=== PATIENT | female | born 1940 | race Caucasian/White ===

== ENCOUNTER 2017-10-13 16:48 | Inpatient (IN) ==
[2017-10-13] MEDS ORDERED: FUROSEMIDE 40 MG/4 ML VIAL ONE (17:04)
[2017-10-13] MEDS ORDERED: NALOXONE 0.4 MG/ML VIAL ONE (17:04)
[2017-10-13] MEDS ORDERED: FUROSEMIDE 40 MG/4 ML VIAL IV STA ×2 (17:09→17:12)
[2017-10-13] MEDS ORDERED: DEXAMETHASONE 4 MG/1 ML VIAL ONE (17:09)
[2017-10-13] MEDS ORDERED: NALOXONE 0.4 MG/ML VIAL IV STA (17:13)
[2017-10-13] MEDS ORDERED: DEXAMETHASONE 4 MG/1 ML VIAL IV STA (17:14)
[2017-10-13] MEDS: PROPOFOL 1,000 MG/100 ML BOTTLE IV SCH ×2 (17:23→21:44)
[2017-10-13] MEDS ORDERED: ETOMIDATE 20 MG/10 ML VIAL IV ONE (17:30)
[2017-10-13] MEDS ORDERED: ROCURONIUM 100 MG/10 ML VIAL IV ONE (17:30)
[2017-10-13 17:33] LABS: Basophils % 0.6 % (0.0-0.8); Eosinophils # 0.2 10*3/uL (0.0-0.87); Eosinophils % 2.8 % (0.00-10.9); Hematocrit 37.1 VOL% (35.7-47.0); Hemoglobin 11.9 GM/DL (12.0-16.0); Immature Granulocytes Absolute 0.07 #; Lymphocytes # 1.7 10*3/uL (1.4-4.0); Lymphocytes % 25.2 % (21.3-54.2); Mean Corpuscular HGB Conc 32.1 GM/DL (32-36); Mean Corpuscular Hemoglobin 29 PG (27-34); Mean Corpuscular Volume 90.5 FL (87-102); Mean Platelet Volume 10.8 FL (9.6-12.0); Monocytes # 0.8 10*3/uL (0.11-0.8); Monocytes % 11.3 % (1.7-12.7); Neutrophils % 59.1 % (38.7-73.9); Platelet Count 282 T/CUMM (130-400); Red Cell Distribution Width 15.9 % (9.3-17.3); White Blood Count 6.8 T/CUMM (4-12)
[2017-10-13 17:41] LABS: PT Patient Result 10.5 SECS; Partial Thromboplastin Time 26.1 SECS (0-40)
[2017-10-13 18:02] LABS: Alanine Aminotransferase 9 U/L (13-56); Albumin 3.5 G/DL (3.4-5.0); Alkaline Phosphatase 61 U/L (45-117); Aspartate Amino Transferase 59 U/L (0-37); Blood Urea Nitrogen 33 MG/DL (7-18); CKMB % 0.6 %; Calcium 9.4 MG/DL (8.5-10.1); Glucose 97 MG/DL (74-106); Osmolality,Calculated 283.5 MOS/KG (273-304); Potassium 3.8 MMOL/L (3.5-5.1); Sodium 139 MMOL/L (136-145); Total Protein 7.6 G/DL (6.4-8.3); Troponin I Only < 0.015 NG/ML (0.00-0.045)
[2017-10-13 18:09] LABS: ABG Base Excess -2.6 MMOL/L (-2.5-2.5); ABG HCO3 22.3 MMOL/L (20-26); ABG Oxygen Saturation 99.9 % (95-100); ABG PCO2 44.2 MM HG (35-48); ABG PH 7.332 (7.35-7.45); ABG TCO2 20.9 MMOL/L (23-27)
[2017-10-13] MEDS ORDERED: PROPOFOL 1,000 MG/100 ML BOTTLE IV ONE (18:13)
[2017-10-13] MEDS ORDERED: ONDANSETRON 4 MG/2 ML VIAL IV PRN (18:48)
[2017-10-13] MEDS ORDERED: ALBUTEROL 2.5 MG/3 ML NEB RESP TX PRN (18:48)
[2017-10-13] MEDS ORDERED: SODIUM CHLORIDE 0.9% 1,000 ML IV SCH (19:00)
[2017-10-13] MEDS ORDERED: PANTOPRAZOLE 40 MG VIAL IV SCH (19:00)
[2017-10-13] MEDS: ALBUTEROL/IPRATROPIUM 3 ML NEB RESP TX SCH (19:38)
[2017-10-13] MEDS ORDERED: ALBUTEROL 0.63 MG/3 ML NEB RESP TX PRN (19:59)
[2017-10-13] MEDS ORDERED: LEVOFLOXACIN INJ 500 MG in PREMIX 1 EACH IV ONE (20:00)
[2017-10-13 20:24] LABS: Apearance,Urine CLEAR (Clear); Bacteria,Urine Occasional /HPF (Few); Bilirubin,Urine Negative (Negative); Blood, Urine Negative (Negative); Glucose,Urine (UA) Negative (Negative); Hyaline Casts,Urine 4 /LPF (0-3); Ketones,Urine 5 mg/dL (Negative); Mucus,Urine Occasional /LPF (Occasional); Nitrite,Urine Negative (Negative); Protein,Urine 30 MG/DL; RBC,Urine 1 /HPF (0-4); Squamous Epithelial Cell,Urine Occasional /HPF (0-10); Urine Color Amber (Yellow); Urine Specific Gravity 1.019 (1.001-1.035); WBC,Urine 1 /HPF (0-6)
[2017-10-13] MEDS: ENOXAPARIN 30 MG/0.3 ML SYRINGE SUBCUT SCH (20:29)
[2017-10-13 20:30] LABS: Barbiturates Screen,Urine Negative (Negative); Benzodiazepines Screen,Urine Negative (Negative); Cannabinoid Screen,Urine Negative (Negative); Opiate Screen,Urine Positive (Negative); Phencyclidine Screen,Urine Negative (Negative)
[2017-10-13 21:20] LABS: ABG Base Excess -3.8 MMOL/L (-2.5-2.5); ABG HCO3 21.2 MMOL/L (20-26); ABG PCO2 37.8 MM HG (35-48); ABG PH 7.357 (7.35-7.45); ABG TCO2 19.1 MMOL/L (23-27)
[2017-10-14] MEDS: ALBUTEROL/IPRATROPIUM 3 ML NEB RESP TX SCH ×4 (01:03→19:15)
[2017-10-14] MEDS: PROPOFOL 1,000 MG/100 ML BOTTLE IV SCH ×5 (01:55→23:36)
[2017-10-14 04:21] LABS: ABG Base Excess -4.9 MMOL/L (-2.5-2.5); ABG HCO3 20.4 MMOL/L (20-26); ABG Oxygen Saturation 99.4 % (95-100); ABG PCO2 32.3 MM HG (35-48); ABG PH 7.384 (7.35-7.45); ABG TCO2 17.3 MMOL/L (23-27); Allen Test Positive; Pt O2 Delivery Device Ventilator
[2017-10-14 06:04] LABS: Basophils % 0.2 % (0.0-0.8); Hemoglobin 10.5 GM/DL (12.0-16.0); Immature Granulocytes % 1.1 %; Immature Granulocytes Absolute 0.05 #; Lymphocytes # 0.7 10*3/uL (1.4-4.0); Lymphocytes % 14.9 % (21.3-54.2); Mean Corpuscular HGB Conc 32.8 GM/DL (32-36); Mean Corpuscular Hemoglobin 29 PG (27-34); Mean Corpuscular Volume 87.4 FL (87-102); Mean Platelet Volume 10.7 FL (9.6-12.0); Monocytes # 0.1 10*3/uL (0.11-0.8); Neutrophils # 3.7 10*3/uL (1.4-7.4); Neutrophils % 81.8 % (38.7-73.9); Platelet Count 229 T/CUMM (130-400); Red Blood Count 3.66 MC/CUMM (3.8-5.5); Red Cell Distribution Width 15.9 % (9.3-17.3); White Blood Count 4.6 T/CUMM (4-12)
[2017-10-14 06:34] LABS: Bilirubin,Total 0.6 MG/DL (0.2-1.0); Calcium 8.6 MG/DL (8.5-10.1); Osmolality,Calculated 290.4 MOS/KG (273-304); Total Protein 6.7 G/DL (6.4-8.3)
[2017-10-14] MEDS ORDERED: PANTOPRAZOLE 40 MG TABLET PO SCH (09:00)
[2017-10-14] MEDS: CARBIDOPA/LEVODOPA 25-100 MG TABLET PO SCH ×2 (09:13→21:06)
[2017-10-14] MEDS: GABAPENTIN 300 MG CAPSULE PO SCH ×3 (09:14→21:06)
[2017-10-14] MEDS: predniSONE 1 MG TABLET PO SCH (09:14)
[2017-10-14] MEDS: POTASSIUM CHLORIDE 20 MEQ TABLET PO SCH (09:14)
[2017-10-14] MEDS: CARVEDILOL 3.125 MG TABLET PO SCH ×2 (09:14→21:06)
[2017-10-14] MEDS: DULoxetine 30 MG CAPSULE PO SCH (09:15)
[2017-10-14] MEDS: PANTOPRAZOLE 40 MG VIAL IV SCH (09:15)
[2017-10-14] MEDS ORDERED: GLUCAGON 1 MG VIAL IM PRN (10:49)
[2017-10-14] MEDS ORDERED: DEXTROSE 50% 25 GM/50 ML VIAL IV PRN (10:49)
[2017-10-14] MEDS: CEFTAROLINE 400 MG in SODIUM CHLORIDE 0.9% 100 ML IV SCH ×2 (11:32→21:59)
[2017-10-14] MEDS: INSULIN REGULAR 100 UNIT/ML SUBCUT SCH ×3 (13:55→23:44)
[2017-10-14] MEDS: VERAPAMIL 120 MG TABLET PO SCH ×2 (14:13→21:06)
[2017-10-14] MEDS: MORPHINE 2 MG/1 ML SYRINGE IV PRN (17:53)
[2017-10-14] MEDS: LEVOFLOXACIN INJ 250 MG in PREMIX 1 EACH IV SCH (20:58)
[2017-10-14] MEDS: ENOXAPARIN 30 MG/0.3 ML SYRINGE SUBCUT SCH (21:07)
[2017-10-15] MEDS: ALBUTEROL/IPRATROPIUM 3 ML NEB RESP TX SCH ×4 (01:22→20:09)
[2017-10-15] MEDS: PROPOFOL 1,000 MG/100 ML BOTTLE IV SCH ×4 (02:30→22:38)
[2017-10-15 04:15] LABS: ABG Base Excess 2.3 MMOL/L (-2.5-2.5); ABG HCO3 26.5 MMOL/L (20-26); ABG Oxygen Saturation 99.7 % (95-100); ABG PCO2 30.8 MM HG (35-48); ABG PH 7.504 (7.35-7.45); ABG TCO2 19.8 MMOL/L (23-27); Allen Test Positive; Pt O2 Delivery Device Ventilator
[2017-10-15 05:53] LABS: Prealbumin 22.6 MG/DL (20-40)
[2017-10-15] MEDS: INSULIN REGULAR 100 UNIT/ML SUBCUT SCH ×3 (05:59→18:31)
[2017-10-15] MEDS: PANTOPRAZOLE 40 MG VIAL IV SCH (09:14)
[2017-10-15] MEDS: VERAPAMIL 120 MG TABLET PO SCH ×3 (09:15→21:27)
[2017-10-15] MEDS: CARVEDILOL 3.125 MG TABLET PO SCH ×2 (09:15→21:27)
[2017-10-15] MEDS: GABAPENTIN 300 MG CAPSULE PO SCH ×3 (09:15→21:27)
[2017-10-15] MEDS: CARBIDOPA/LEVODOPA 25-100 MG TABLET PO SCH ×2 (09:15→21:27)
[2017-10-15] MEDS: predniSONE 1 MG TABLET PO SCH (09:15)
[2017-10-15] MEDS: POTASSIUM CHLORIDE 20 MEQ TABLET PO SCH (09:15)
[2017-10-15] MEDS: DULoxetine 30 MG CAPSULE PO SCH (09:16)
[2017-10-15] MEDS: CEFTAROLINE 400 MG in SODIUM CHLORIDE 0.9% 100 ML IV SCH ×2 (09:23→21:35)
[2017-10-15] MEDS: LEVOFLOXACIN INJ 250 MG in PREMIX 1 EACH IV SCH (20:14)
[2017-10-15] MEDS: ENOXAPARIN 30 MG/0.3 ML SYRINGE SUBCUT SCH (21:28)
[2017-10-16] MEDS: INSULIN REGULAR 100 UNIT/ML SUBCUT SCH ×4 (00:20→18:33)
[2017-10-16] MEDS: ALBUTEROL/IPRATROPIUM 3 ML NEB RESP TX SCH ×4 (01:14→19:08)
[2017-10-16] MEDS: PROPOFOL 1,000 MG/100 ML BOTTLE IV SCH ×4 (01:41→22:35)
[2017-10-16 04:13] LABS: ABG Base Excess 1.9 MMOL/L (-2.5-2.5); ABG HCO3 26.1 MMOL/L (20-26); ABG Oxygen Saturation 99.9 % (95-100); ABG PCO2 30.7 MM HG (35-48); ABG PH 7.509 (7.35-7.45); ABG TCO2 22.2 MMOL/L (23-27); Allen Test Positive; Pt O2 Delivery Device Ventilator
[2017-10-16 05:25] LABS: Basophils % 0.1 % (0.0-0.8); Eosinophils % 0.4 % (0.00-10.9); Hemoglobin 10.2 GM/DL (12.0-16.0); Immature Granulocytes % 0.6 %; Immature Granulocytes Absolute 0.04 #; Lymphocytes # 1.1 10*3/uL (1.4-4.0); Lymphocytes % 16.7 % (21.3-54.2); Mean Corpuscular HGB Conc 32.9 GM/DL (32-36); Mean Corpuscular Hemoglobin 29 PG (27-34); Mean Corpuscular Volume 88.8 FL (87-102); Mean Platelet Volume 10.6 FL (9.6-12.0); Monocytes # 0.6 10*3/uL (0.11-0.8); Monocytes % 8.2 % (1.7-12.7); Platelet Count 182 T/CUMM (130-400); Red Blood Count 3.49 MC/CUMM (3.8-5.5); Red Cell Distribution Width 15.9 % (9.3-17.3); White Blood Count 6.7 T/CUMM (4-12)
[2017-10-16 05:49] LABS: Calcium 8.2 MG/DL (8.5-10.1); Osmolality,Calculated 290.8 MOS/KG (273-304); Potassium 3.6 MMOL/L (3.5-5.1)
[2017-10-16] MEDS: predniSONE 1 MG TABLET PO SCH (09:22)
[2017-10-16] MEDS: POTASSIUM CHLORIDE 20 MEQ TABLET PO SCH (09:22)
[2017-10-16] MEDS: VERAPAMIL 120 MG TABLET PO SCH ×4 (09:23→20:37)
[2017-10-16] MEDS: GABAPENTIN 300 MG CAPSULE PO SCH ×3 (09:23→20:39)
[2017-10-16] MEDS: PANTOPRAZOLE 40 MG VIAL IV SCH (09:23)
[2017-10-16] MEDS: CARVEDILOL 3.125 MG TABLET PO SCH ×2 (09:23→20:38)
[2017-10-16] MEDS: CARBIDOPA/LEVODOPA 25-100 MG TABLET PO SCH ×2 (09:23→20:37)
[2017-10-16] MEDS: CEFTAROLINE 400 MG in SODIUM CHLORIDE 0.9% 100 ML IV SCH ×2 (09:26→21:31)
[2017-10-16] MEDS: DULoxetine 30 MG CAPSULE PO SCH (09:26)
[2017-10-16] MEDS ORDERED: POTASSIUM CHLORIDE 20 MEQ/15 ML UDCUP PER TUBE PRN (11:37)
[2017-10-16] MEDS: hydrALAZINE 25 MG TABLET PO SCH ×2 (12:43→20:38)
[2017-10-16] MEDS: LEVOFLOXACIN INJ 250 MG in PREMIX 1 EACH IV SCH (20:27)
[2017-10-16] MEDS: ENOXAPARIN 30 MG/0.3 ML SYRINGE SUBCUT SCH (20:38)
[2017-10-17] MEDS: ALBUTEROL/IPRATROPIUM 3 ML NEB RESP TX SCH ×4 (00:59→19:07)
[2017-10-17] MEDS: INSULIN REGULAR 100 UNIT/ML SUBCUT SCH ×4 (02:08→18:44)
[2017-10-17 04:38] LABS: ABG Base Excess -0.8 MMOL/L (-2.5-2.5); ABG HCO3 21.3 MMOL/L (20-26); ABG PCO2 27.3 MM HG (35-48); ABG PO2 181.9 MM HG (80-95); ABG TCO2 22.1 MMOL/L (23-27); Allen Test Positive; Pt O2 Delivery Device Ventilator
[2017-10-17 05:52] LABS: Basophils % 0.4 % (0.0-0.8); Eosinophils # 0.1 10*3/uL (0.0-0.87); Eosinophils % 1.7 % (0.00-10.9); Hematocrit 33.4 VOL% (35.7-47.0); Hemoglobin 10.5 GM/DL (12.0-16.0); Immature Granulocytes % 0.9 %; Immature Granulocytes Absolute 0.06 #; Lymphocytes # 1.1 10*3/uL (1.4-4.0); Mean Corpuscular HGB Conc 31.4 GM/DL (32-36); Mean Corpuscular Hemoglobin 29 PG (27-34); Mean Platelet Volume 11.2 FL (9.6-12.0); Monocytes # 0.6 10*3/uL (0.11-0.8); Monocytes % 8.7 % (1.7-12.7); Neutrophils # 5.1 10*3/uL (1.4-7.4); Neutrophils % 72.3 % (38.7-73.9); Platelet Count 197 T/CUMM (130-400); Red Blood Count 3.67 MC/CUMM (3.8-5.5); Red Cell Distribution Width 15.6 % (9.3-17.3); White Blood Count 7.1 T/CUMM (4-12)
[2017-10-17 06:23] LABS: Prealbumin 19.5 MG/DL (20-40)
[2017-10-17 06:48] LABS: Calcium 8.3 MG/DL (8.5-10.1); Potassium 3.9 MMOL/L (3.5-5.1)
[2017-10-17] MEDS: PROPOFOL 1,000 MG/100 ML BOTTLE IV SCH ×3 (07:11→22:35)
[2017-10-17] MEDS: DILTIAZEM INJ 100 MG in SODIUM CHLORIDE 0.9% 100 ML IV SCH ×2 (07:45→22:36)
[2017-10-17] MEDS ORDERED: ENOXAPARIN 40 MG/0.4 ML SYRINGE SUBCUT ONE (09:56)
[2017-10-17] MEDS: ASPIRIN CHEW 81 MG TABLET PO SCH (10:00)
[2017-10-17] MEDS: PANTOPRAZOLE 40 MG VIAL IV SCH (10:02)
[2017-10-17] MEDS: DULoxetine 30 MG CAPSULE PO SCH (10:03)
[2017-10-17] MEDS: CARBIDOPA/LEVODOPA 25-100 MG TABLET PO SCH ×2 (10:03→22:15)
[2017-10-17] MEDS: predniSONE 1 MG TABLET PO SCH (10:03)
[2017-10-17] MEDS: CARVEDILOL 3.125 MG TABLET PO SCH (10:03)
[2017-10-17] MEDS: hydrALAZINE 25 MG TABLET PO SCH ×4 (10:03→22:16)
[2017-10-17] MEDS: GABAPENTIN 300 MG CAPSULE PO SCH ×3 (10:04→22:16)
[2017-10-17] MEDS: POTASSIUM CHLORIDE 20 MEQ TABLET PO SCH (10:04)
[2017-10-17] MEDS: CEFTAROLINE 600 MG in SODIUM CHLORIDE 0.9% 100 ML IV SCH ×2 (10:34→23:22)
[2017-10-17 10:57] LABS: Risk Ratio 6.92; Thyroid Stimulating Hormone 3.18 uIU/ml (0.358-3.74); VLDL CHOLESTEROL 42.8 MG/DL
[2017-10-17] MEDS ORDERED: ENOXAPARIN 40 MG/0.4 ML SYRINGE SUBCUT SCH (21:00)
[2017-10-17] MEDS: LEVOFLOXACIN INJ 500 MG in PREMIX 1 EACH IV SCH (22:04)
[2017-10-17] MEDS: ENOXAPARIN 80 MG/0.8 ML SYRINGE SUBCUT SCH (22:15)
[2017-10-17] MEDS: CARVEDILOL 6.25 MG TABLET PO SCH (22:15)
[2017-10-18] MEDS: ALBUTEROL/IPRATROPIUM 3 ML NEB RESP TX SCH ×4 (00:08→20:26)
[2017-10-18] MEDS: INSULIN REGULAR 100 UNIT/ML SUBCUT SCH ×4 (00:47→19:11)
[2017-10-18] MEDS: PROPOFOL 1,000 MG/100 ML BOTTLE IV SCH ×3 (02:32→15:54)
[2017-10-18 03:42] LABS: ABG Base Excess -3.3 MMOL/L (-2.5-2.5); ABG HCO3 21.6 MMOL/L (20-26); ABG Oxygen Saturation 93.6 % (95-100); ABG PCO2 31.9 MM HG (35-48); ABG PH 7.416 (7.35-7.45); ABG PO2 68.9 MM HG (80-95); ABG TCO2 18.6 MMOL/L (23-27)
[2017-10-18 05:34] LABS: Basophils % 0.4 % (0.0-0.8); Eosinophils # 0.2 10*3/uL (0.0-0.87); Eosinophils % 2.7 % (0.00-10.9); Hematocrit 30.9 VOL% (35.7-47.0); Hemoglobin 9.9 GM/DL (12.0-16.0); Immature Granulocytes % 2.3 %; Immature Granulocytes Absolute 0.16 #; Lymphocytes # 0.9 10*3/uL (1.4-4.0); Lymphocytes % 12.4 % (21.3-54.2); Mean Corpuscular Hemoglobin 29 PG (27-34); Mean Corpuscular Volume 89.3 FL (87-102); Mean Platelet Volume 11.6 FL (9.6-12.0); Monocytes # 0.7 10*3/uL (0.11-0.8); Monocytes % 9.7 % (1.7-12.7); Neutrophils % 72.5 % (38.7-73.9); Platelet Count 190 T/CUMM (130-400); Red Blood Count 3.46 MC/CUMM (3.8-5.5); Red Cell Distribution Width 15.8 % (9.3-17.3); White Blood Count 6.9 T/CUMM (4-12)
[2017-10-18 05:59] LABS: Band Neutrophils 1 % (0-10); Burr Cells Slight; Eosinophils 2 % (0-10); Giant Platelets Few; Hypochromasia 1+; Lymphocytes 9 % (20-55); Microcytosis Slight; Ovalocytes Slight; Platelet Estimate Adequate; Segmented Neutrophils 75 % (50-85); Total Cells Counted 100
[2017-10-18 06:05] LABS: Calcium 8.4 MG/DL (8.5-10.1); Osmolality,Calculated 288.5 MOS/KG (273-304); Potassium 4.3 MMOL/L (3.5-5.1)
[2017-10-18 06:09] LABS: Calcium 8.4 MG/DL (8.5-10.1); Osmolality,Calculated 289.4 MOS/KG (273-304); Potassium 4.3 MMOL/L (3.5-5.1)
[2017-10-18] MEDS: CARVEDILOL 6.25 MG TABLET PO SCH ×2 (09:01→20:34)
[2017-10-18] MEDS: POTASSIUM CHLORIDE 20 MEQ TABLET PO SCH (09:01)
[2017-10-18] MEDS: GABAPENTIN 300 MG CAPSULE PO SCH ×3 (09:01→20:34)
[2017-10-18] MEDS: DULoxetine 30 MG CAPSULE PO SCH (09:02)
[2017-10-18] MEDS: CARBIDOPA/LEVODOPA 25-100 MG TABLET PO SCH ×2 (09:03→20:33)
[2017-10-18] MEDS: predniSONE 1 MG TABLET PO SCH (09:03)
[2017-10-18] MEDS: ASPIRIN CHEW 81 MG TABLET PO SCH (09:03)
[2017-10-18] MEDS: hydrALAZINE 25 MG TABLET PO SCH ×4 (09:03→20:34)
[2017-10-18] MEDS: SOTALOL 80 MG TABLET NG SCH ×2 (09:03→20:33)
[2017-10-18] MEDS: methylPREDNISolone SOD SUC 40 MG/1 ML VIAL IV SCH ×2 (09:04→16:42)
[2017-10-18] MEDS: PANTOPRAZOLE 40 MG VIAL IV SCH (09:08)
[2017-10-18] MEDS: ENOXAPARIN 80 MG/0.8 ML SYRINGE SUBCUT SCH ×2 (09:15→20:33)
[2017-10-18] MEDS: CEFTAROLINE 600 MG in SODIUM CHLORIDE 0.9% 100 ML IV SCH ×2 (09:29→20:35)
[2017-10-18] MEDS: DILTIAZEM INJ 100 MG in SODIUM CHLORIDE 0.9% 100 ML IV SCH (19:32)
[2017-10-18] MEDS: MORPHINE 2 MG/1 ML SYRINGE IV PRN (20:34)
[2017-10-18] MEDS: LEVOFLOXACIN INJ 500 MG in PREMIX 1 EACH IV SCH (20:35)
[2017-10-19] MEDS: INSULIN REGULAR 100 UNIT/ML SUBCUT SCH ×5 (00:15→23:14)
[2017-10-19] MEDS: methylPREDNISolone SOD SUC 40 MG/1 ML VIAL IV SCH ×4 (00:15→23:15)
[2017-10-19] MEDS: MORPHINE 2 MG/1 ML SYRINGE IV PRN ×6 (00:22→23:09)
[2017-10-19] MEDS: PROPOFOL 1,000 MG/100 ML BOTTLE IV SCH ×4 (00:45→23:15)
[2017-10-19] MEDS: ALBUTEROL/IPRATROPIUM 3 ML NEB RESP TX SCH ×4 (01:05→19:34)
[2017-10-19 03:42] LABS: ABG Base Excess -4.4 MMOL/L (-2.5-2.5); ABG HCO3 20.8 MMOL/L (20-26); ABG Oxygen Saturation 99.2 % (95-100); ABG PCO2 32.8 MM HG (35-48); ABG PH 7.388 (7.35-7.45); ABG TCO2 17.9 MMOL/L (23-27)
[2017-10-19 05:15] LABS: Basophils % 0.2 % (0.0-0.8); Hematocrit 31.1 VOL% (35.7-47.0); Hemoglobin 9.9 GM/DL (12.0-16.0); Immature Granulocytes % 4.4 %; Immature Granulocytes Absolute 0.27 #; Lymphocytes # 0.6 10*3/uL (1.4-4.0); Lymphocytes % 9.6 % (21.3-54.2); Mean Corpuscular HGB Conc 31.8 GM/DL (32-36); Mean Corpuscular Hemoglobin 28 PG (27-34); Mean Corpuscular Volume 89.1 FL (87-102); Mean Platelet Volume 11.6 FL (9.6-12.0); Monocytes # 0.2 10*3/uL (0.11-0.8); Monocytes % 3.3 % (1.7-12.7); Neutrophils # 5.1 10*3/uL (1.4-7.4); Neutrophils % 82.5 % (38.7-73.9); Platelet Count 194 T/CUMM (130-400); Red Blood Count 3.49 MC/CUMM (3.8-5.5); Red Cell Distribution Width 15.2 % (9.3-17.3); White Blood Count 6.1 T/CUMM (4-12)
[2017-10-19 05:33] LABS: Calcium 8.6 MG/DL (8.5-10.1); Osmolality,Calculated 301.7 MOS/KG (273-304); Potassium 4.9 MMOL/L (3.5-5.1)
[2017-10-19] MEDS: GABAPENTIN 300 MG CAPSULE PO SCH ×3 (08:45→20:34)
[2017-10-19] MEDS: POTASSIUM CHLORIDE 20 MEQ TABLET PO SCH (08:45)
[2017-10-19] MEDS: DULoxetine 30 MG CAPSULE PO SCH (08:45)
[2017-10-19] MEDS: predniSONE 1 MG TABLET PO SCH (08:45)
[2017-10-19] MEDS: SOTALOL 80 MG TABLET NG SCH ×2 (08:45→20:34)
[2017-10-19] MEDS: CARBIDOPA/LEVODOPA 25-100 MG TABLET PO SCH ×2 (08:45→20:34)
[2017-10-19] MEDS: CARVEDILOL 6.25 MG TABLET PO SCH (08:45)
[2017-10-19] MEDS: hydrALAZINE 25 MG TABLET PO SCH ×3 (08:45→20:38)
[2017-10-19] MEDS: ENOXAPARIN 80 MG/0.8 ML SYRINGE SUBCUT SCH ×2 (08:45→20:33)
[2017-10-19] MEDS: ASPIRIN CHEW 81 MG TABLET PO SCH (08:45)
[2017-10-19] MEDS: PANTOPRAZOLE 40 MG VIAL IV SCH (09:23)
[2017-10-19] MEDS: CEFTAROLINE 600 MG in SODIUM CHLORIDE 0.9% 100 ML IV SCH ×2 (09:24→20:33)
[2017-10-19] MEDS ORDERED: CARVEDILOL 6.25 MG TABLET PO ONE (09:57)
[2017-10-19] MEDS ORDERED: INSULIN NPH 100 UNIT/ML SUBCUT ONE (14:41)
[2017-10-19] MEDS: LEVOFLOXACIN INJ 500 MG in PREMIX 1 EACH IV SCH (19:19)
[2017-10-19] MEDS: CARVEDILOL 12.5 MG TABLET PO SCH (20:34)
[2017-10-19] MEDS ORDERED: INSULIN GLARGINE 100 UNIT/ML SUBCUT SCH (21:00)
[2017-10-19] MEDS ORDERED: ALBUTEROL NEB SOLN 5 MG/ML 20 ML/BOTTLE CONT NEB ONE (23:48)
[2017-10-19] MEDS ORDERED: MAGNESIUM SULF RIDER 2 GM in PREMIX 1 EACH IV ONE (23:50)
[2017-10-20] MEDS: ALBUTEROL/IPRATROPIUM 3 ML NEB RESP TX SCH ×4 (00:43→19:42)
[2017-10-20] MEDS: MORPHINE 2 MG/1 ML SYRINGE IV PRN ×4 (03:30→20:09)
[2017-10-20] MEDS: PROPOFOL 1,000 MG/100 ML BOTTLE IV SCH ×4 (03:30→22:15)
[2017-10-20 03:58] LABS: Basophils % 0.1 % (0.0-0.8); Hematocrit 34.1 VOL% (35.7-47.0); Hemoglobin 10.4 GM/DL (12.0-16.0); Immature Granulocytes % 4.1 %; Immature Granulocytes Absolute 0.41 #; Lymphocytes # 0.9 10*3/uL (1.4-4.0); Lymphocytes % 9.1 % (21.3-54.2); Mean Corpuscular HGB Conc 30.5 GM/DL (32-36); Mean Corpuscular Hemoglobin 29 PG (27-34); Mean Platelet Volume 11.9 FL (9.6-12.0); Monocytes # 0.4 10*3/uL (0.11-0.8); Monocytes % 3.8 % (1.7-12.7); Neutrophils # 8.2 10*3/uL (1.4-7.4); Neutrophils % 82.9 % (38.7-73.9); Platelet Count 248 T/CUMM (130-400); Red Blood Count 3.59 MC/CUMM (3.8-5.5); Red Cell Distribution Width 15.2 % (9.3-17.3); White Blood Count 9.9 T/CUMM (4-12)
[2017-10-20 04:30] LABS: Calcium 8.4 MG/DL (8.5-10.1); Osmolality,Calculated 304.4 MOS/KG (273-304); Potassium 5.4 MMOL/L (3.5-5.1)
[2017-10-20 04:53] LABS: ABG Base Excess -7.9 MMOL/L (-2.5-2.5); ABG HCO3 18.1 MMOL/L (20-26); ABG Oxygen Saturation 99.1 % (95-100); ABG PCO2 51.6 MM HG (35-48); ABG TCO2 18.9 MMOL/L (23-27); Pt O2 Delivery Device Ventilator
[2017-10-20 04:57] LABS: ABG PH 7.205 (7.35-7.45)
[2017-10-20] MEDS: INSULIN REGULAR 100 UNIT/ML SUBCUT SCH ×3 (06:14→18:06)
[2017-10-20 06:59] LABS: ABG Base Excess -6.8 MMOL/L (-2.5-2.5); ABG HCO3 20.4 MMOL/L (20-26); ABG Oxygen Saturation 98.8 % (95-100); ABG PCO2 47.9 MM HG (35-48); ABG PH 7.247 (7.35-7.45); ABG PO2 178.3 MM HG (80-95); ABG TCO2 21.9 MMOL/L (23-27)
[2017-10-20 07:29] LABS: Prealbumin 20.7 MG/DL (20-40)
[2017-10-20] MEDS: ENOXAPARIN 80 MG/0.8 ML SYRINGE SUBCUT SCH ×2 (08:27→20:08)
[2017-10-20] MEDS: CEFTAROLINE 600 MG in SODIUM CHLORIDE 0.9% 100 ML IV SCH ×2 (08:27→20:16)
[2017-10-20] MEDS: PANTOPRAZOLE 40 MG VIAL IV SCH (08:28)
[2017-10-20] MEDS: methylPREDNISolone SOD SUC 40 MG/1 ML VIAL IV SCH ×2 (08:28→15:24)
[2017-10-20] MEDS: hydrALAZINE 25 MG TABLET PO SCH ×2 (08:29→20:10)
[2017-10-20] MEDS: GABAPENTIN 300 MG CAPSULE PO SCH ×3 (08:29→20:16)
[2017-10-20] MEDS: SOTALOL 80 MG TABLET NG SCH ×2 (08:29→20:09)
[2017-10-20] MEDS: CARVEDILOL 12.5 MG TABLET PO SCH ×2 (08:30→20:11)
[2017-10-20] MEDS: POTASSIUM CHLORIDE 20 MEQ TABLET PO SCH (08:30)
[2017-10-20] MEDS: ASPIRIN CHEW 81 MG TABLET PO SCH (08:30)
[2017-10-20] MEDS: CARBIDOPA/LEVODOPA 25-100 MG TABLET PO SCH ×2 (08:30→20:10)
[2017-10-20] MEDS: DULoxetine 30 MG CAPSULE PO SCH ×2 (08:30→08:45)
[2017-10-20] MEDS: predniSONE 1 MG TABLET PO SCH (11:54)
[2017-10-20] MEDS ORDERED: INSULIN GLARGINE 100 UNIT/ML SUBCUT SCH (15:56)
[2017-10-20] MEDS: LEVOFLOXACIN INJ 500 MG in PREMIX 1 EACH IV SCH (19:48)
[2017-10-21] MEDS: methylPREDNISolone SOD SUC 40 MG/1 ML VIAL IV SCH ×4 (00:24→23:59)
[2017-10-21] MEDS: INSULIN REGULAR 100 UNIT/ML SUBCUT SCH ×7 (00:24→23:59)
[2017-10-21] MEDS: ALBUTEROL/IPRATROPIUM 3 ML NEB RESP TX SCH ×4 (01:21→19:12)
[2017-10-21] MEDS: MORPHINE 2 MG/1 ML SYRINGE IV PRN ×3 (02:30→23:20)
[2017-10-21] MEDS: PROPOFOL 1,000 MG/100 ML BOTTLE IV SCH ×4 (02:30→22:15)
[2017-10-21 04:19] LABS: Allen Test Positive; Pt O2 Delivery Device Ventilator
[2017-10-21 04:20] LABS: ABG Base Excess -5.7 MMOL/L (-2.5-2.5); ABG HCO3 19.8 MMOL/L (20-26); ABG Oxygen Saturation 99.2 % (95-100); ABG PCO2 41.1 MM HG (35-48); ABG PH 7.304 (7.35-7.45); ABG TCO2 18.7 MMOL/L (23-27)
[2017-10-21 05:17] LABS: Basophils % 0.1 % (0.0-0.8); Hematocrit 31.8 VOL% (35.7-47.0); Hemoglobin 9.6 GM/DL (12.0-16.0); Immature Granulocytes % 5.1 %; Immature Granulocytes Absolute 0.35 #; Lymphocytes # 0.5 10*3/uL (1.4-4.0); Lymphocytes % 6.6 % (21.3-54.2); Mean Corpuscular HGB Conc 30.2 GM/DL (32-36); Mean Corpuscular Hemoglobin 29 PG (27-34); Mean Corpuscular Volume 94.6 FL (87-102); Mean Platelet Volume 11.5 FL (9.6-12.0); Monocytes # 0.7 10*3/uL (0.11-0.8); Monocytes % 9.6 % (1.7-12.7); Neutrophils # 5.4 10*3/uL (1.4-7.4); Neutrophils % 78.6 % (38.7-73.9); Platelet Count 218 T/CUMM (130-400); Red Blood Count 3.36 MC/CUMM (3.8-5.5); White Blood Count 6.8 T/CUMM (4-12)
[2017-10-21 05:41] LABS: Band Neutrophils 3 % (0-10); Giant Platelets Few; Hypochromasia Slight; Lymphocytes 7 % (20-55); Platelet Estimate Adequate; Segmented Neutrophils 71 % (50-85); Total Cells Counted 100
[2017-10-21 05:42] LABS: Microcytosis Slight
[2017-10-21 06:35] LABS: Calcium 9.1 MG/DL (8.5-10.1); Osmolality,Calculated 317.3 MOS/KG (273-304); Potassium 4.8 MMOL/L (3.5-5.1)
[2017-10-21] MEDS: hydrALAZINE 20 MG/1 ML VIAL IV PRN (08:17)
[2017-10-21] MEDS: POTASSIUM CHLORIDE 20 MEQ TABLET PO SCH (09:03)
[2017-10-21] MEDS: DULoxetine 30 MG CAPSULE PO SCH (09:13)
[2017-10-21] MEDS: CARBIDOPA/LEVODOPA 25-100 MG TABLET PO SCH ×2 (09:13→20:55)
[2017-10-21] MEDS: GABAPENTIN 300 MG CAPSULE PO SCH ×3 (09:13→20:55)
[2017-10-21] MEDS: SOTALOL 80 MG TABLET NG SCH ×2 (09:14→20:55)
[2017-10-21] MEDS: CARVEDILOL 12.5 MG TABLET PO SCH ×2 (09:14→20:55)
[2017-10-21] MEDS: ASPIRIN CHEW 81 MG TABLET PO SCH (09:14)
[2017-10-21] MEDS: ENOXAPARIN 80 MG/0.8 ML SYRINGE SUBCUT SCH ×2 (09:31→20:55)
[2017-10-21] MEDS: PANTOPRAZOLE 40 MG VIAL IV SCH (09:32)
[2017-10-21] MEDS: CEFTAROLINE 600 MG in SODIUM CHLORIDE 0.9% 100 ML IV SCH ×2 (09:32→20:54)
[2017-10-21] MEDS: hydrALAZINE 25 MG TABLET PO SCH (09:59)
[2017-10-21] MEDS ORDERED: MORPHINE 10 MG/1 ML VIAL SUBCUT PRN (10:30)
[2017-10-21] MEDS ORDERED: RACEPINEPHRINE 0.5 ML NEB RESP TX PRN (11:26)
[2017-10-21] MEDS ORDERED: PROPOFOL 200 MG/20 ML VIAL IV ONE (12:03)
[2017-10-21] MEDS ORDERED: ROCURONIUM 100 MG/10 ML VIAL IV ONE (12:03)
[2017-10-21] MEDS: LEVOFLOXACIN INJ 500 MG in PREMIX 1 EACH IV SCH (20:53)
[2017-10-21] MEDS ORDERED: INSULIN GLARGINE 100 UNIT/ML SUBCUT SCH (21:00)
[2017-10-22] MEDS: PROPOFOL 1,000 MG/100 ML BOTTLE IV SCH ×3 (02:35→21:30)
[2017-10-22] MEDS: ALBUTEROL/IPRATROPIUM 3 ML NEB RESP TX SCH ×7 (02:40→23:42)
[2017-10-22 03:42] LABS: Basophils % 0.1 % (0.0-0.8); Hematocrit 30.9 VOL% (35.7-47.0); Hemoglobin 9.7 GM/DL (12.0-16.0); Immature Granulocytes % 5.3 %; Immature Granulocytes Absolute 0.44 #; Lymphocytes # 0.6 10*3/uL (1.4-4.0); Lymphocytes % 7.7 % (21.3-54.2); Mean Corpuscular HGB Conc 31.4 GM/DL (32-36); Mean Corpuscular Hemoglobin 29 PG (27-34); Mean Corpuscular Volume 91.4 FL (87-102); Mean Platelet Volume 11.4 FL (9.6-12.0); Monocytes # 0.6 10*3/uL (0.11-0.8); Monocytes % 7.5 % (1.7-12.7); Neutrophils # 6.6 10*3/uL (1.4-7.4); Neutrophils % 79.4 % (38.7-73.9); Platelet Count 212 T/CUMM (130-400); Red Blood Count 3.38 MC/CUMM (3.8-5.5); White Blood Count 8.3 T/CUMM (4-12)
[2017-10-22] MEDS: INSULIN REGULAR 100 UNIT/ML SUBCUT SCH ×5 (03:56→20:23)
[2017-10-22 04:01] LABS: Allen Test Positive; Pt O2 Delivery Device Ventilator
[2017-10-22 04:02] LABS: ABG Base Excess -4.6 MMOL/L (-2.5-2.5); ABG HCO3 20.6 MMOL/L (20-26); ABG Oxygen Saturation 99.1 % (95-100); ABG PCO2 45.1 MM HG (35-48); ABG PH 7.294 (7.35-7.45); ABG TCO2 20.2 MMOL/L (23-27)
[2017-10-22 04:20] LABS: Band Neutrophils 5 % (0-10); Lymphocytes 3 % (20-55); Metamyelocytes 1 %; Myelocytes 1 %; Segmented Neutrophils 88 % (50-85); Total Cells Counted 100
[2017-10-22 04:21] LABS: Anisocytosis 1+; Poikilocytosis 2+
[2017-10-22 04:52] LABS: Calcium 8.6 MG/DL (8.5-10.1); Osmolality,Calculated 313.1 MOS/KG (273-304); Potassium 5.1 MMOL/L (3.5-5.1)
[2017-10-22] MEDS: CEFTAROLINE 600 MG in SODIUM CHLORIDE 0.9% 100 ML IV SCH ×2 (09:30→20:23)
[2017-10-22] MEDS: POTASSIUM CHLORIDE 20 MEQ TABLET PO SCH (09:30)
[2017-10-22] MEDS: ENOXAPARIN 80 MG/0.8 ML SYRINGE SUBCUT SCH ×2 (09:30→20:23)
[2017-10-22] MEDS: GABAPENTIN 300 MG CAPSULE PO SCH ×3 (09:30→20:22)
[2017-10-22] MEDS: CARVEDILOL 12.5 MG TABLET PO SCH ×2 (09:30→20:22)
[2017-10-22] MEDS: DULoxetine 30 MG CAPSULE PO SCH (09:30)
[2017-10-22] MEDS: SOTALOL 80 MG TABLET NG SCH ×2 (09:30→20:22)
[2017-10-22] MEDS: ASPIRIN CHEW 81 MG TABLET PO SCH (09:30)
[2017-10-22] MEDS: CARBIDOPA/LEVODOPA 25-100 MG TABLET PO SCH ×2 (09:30→20:22)
[2017-10-22] MEDS: PANTOPRAZOLE 40 MG VIAL IV SCH (09:30)
[2017-10-22] MEDS: methylPREDNISolone SOD SUC 40 MG/1 ML VIAL IV SCH ×2 (09:32→16:30)
[2017-10-22] MEDS: MORPHINE 2 MG/1 ML SYRINGE IV PRN (12:40)
[2017-10-22] MEDS: MORPHINE 10 MG/5 ML UDCUP PO SCH ×2 (15:00→22:15)
[2017-10-22] MEDS: INSULIN GLARGINE 100 UNIT/ML SUBCUT SCH (20:23)
[2017-10-22] MEDS: LEVOFLOXACIN INJ 500 MG in PREMIX 1 EACH IV SCH (20:23)
[2017-10-23] MEDS: INSULIN REGULAR 100 UNIT/ML SUBCUT SCH ×6 (00:07→20:26)
[2017-10-23] MEDS: methylPREDNISolone SOD SUC 40 MG/1 ML VIAL IV SCH ×3 (00:08→16:28)
[2017-10-23] MEDS: ALBUTEROL/IPRATROPIUM 3 ML NEB RESP TX SCH ×6 (03:28→22:35)
[2017-10-23 03:44] LABS: ABG Base Excess -1.1 MMOL/L (-2.5-2.5); ABG HCO3 23.5 MMOL/L (20-26); ABG Oxygen Saturation 98.8 % (95-100); ABG PCO2 41.1 MM HG (35-48); ABG PH 7.375 (7.35-7.45); ABG TCO2 21.7 MMOL/L (23-27)
[2017-10-23 03:50] LABS: Basophils % 0.2 % (0.0-0.8); Hematocrit 33.3 VOL% (35.7-47.0); Hemoglobin 10.4 GM/DL (12.0-16.0); Immature Granulocytes % 6.9 %; Immature Granulocytes Absolute 0.93 #; Mean Corpuscular HGB Conc 31.2 GM/DL (32-36); Mean Corpuscular Hemoglobin 29 PG (27-34); Mean Platelet Volume 11.4 FL (9.6-12.0); Monocytes # 0.9 10*3/uL (0.11-0.8); Monocytes % 6.6 % (1.7-12.7); Neutrophils # 10.8 10*3/uL (1.4-7.4); Neutrophils % 79.3 % (38.7-73.9); Platelet Count 291 T/CUMM (130-400); Red Blood Count 3.62 MC/CUMM (3.8-5.5); Red Cell Distribution Width 14.8 % (9.3-17.3); White Blood Count 13.6 T/CUMM (4-12)
[2017-10-23 04:17] LABS: Calcium 8.7 MG/DL (8.5-10.1); Osmolality,Calculated 308.1 MOS/KG (273-304); Potassium 5.1 MMOL/L (3.5-5.1)
[2017-10-23 05:03] LABS: Lymphocytes 10 % (20-55); Metamyelocytes 1 %; Myelocytes 1 %; Promyelocytes 1 %; Segmented Neutrophils 87 % (50-85)
[2017-10-23 05:10] LABS: Platelet Estimate Normal
[2017-10-23 05:11] LABS: Tear Drop Cells 2+
[2017-10-23 05:12] LABS: Polychromasia Few; Total Cells Counted 100
[2017-10-23] MEDS: hydrALAZINE 20 MG/1 ML VIAL IV PRN (06:10)
[2017-10-23] MEDS: MORPHINE 10 MG/5 ML UDCUP PO SCH ×3 (06:16→22:08)
[2017-10-23] MEDS: PROPOFOL 1,000 MG/100 ML BOTTLE IV SCH ×3 (06:16→23:20)
[2017-10-23] MEDS: ENOXAPARIN 80 MG/0.8 ML SYRINGE SUBCUT SCH ×2 (09:02→20:26)
[2017-10-23] MEDS: GABAPENTIN 300 MG CAPSULE PO SCH ×3 (09:03→20:26)
[2017-10-23] MEDS: DULoxetine 30 MG CAPSULE PO SCH (09:03)
[2017-10-23] MEDS: CARBIDOPA/LEVODOPA 25-100 MG TABLET PO SCH ×2 (09:03→20:26)
[2017-10-23] MEDS: CARVEDILOL 12.5 MG TABLET PO SCH ×2 (09:03→20:26)
[2017-10-23] MEDS: SOTALOL 80 MG TABLET NG SCH ×2 (09:03→20:26)
[2017-10-23] MEDS: POTASSIUM CHLORIDE 20 MEQ TABLET PO SCH (09:03)
[2017-10-23] MEDS: PANTOPRAZOLE 40 MG VIAL IV SCH (09:04)
[2017-10-23] MEDS: ASPIRIN CHEW 81 MG TABLET PO SCH (09:04)
[2017-10-23] MEDS: INSULIN GLARGINE 100 UNIT/ML SUBCUT SCH ×2 (09:04→20:27)
[2017-10-23] MEDS: CEFTAROLINE 600 MG in SODIUM CHLORIDE 0.9% 100 ML IV SCH ×2 (09:09→20:26)
[2017-10-23] MEDS: LEVOFLOXACIN INJ 500 MG in PREMIX 1 EACH IV SCH (20:25)
[2017-10-24] MEDS: methylPREDNISolone SOD SUC 40 MG/1 ML VIAL IV SCH ×4 (00:32→23:49)
[2017-10-24] MEDS: MORPHINE 2 MG/1 ML SYRINGE IV PRN (00:32)
[2017-10-24] MEDS: INSULIN REGULAR 100 UNIT/ML SUBCUT SCH ×7 (00:33→23:48)
[2017-10-24] MEDS: ALBUTEROL/IPRATROPIUM 3 ML NEB RESP TX SCH ×6 (02:26→23:26)
[2017-10-24 03:39] LABS: ABG Base Excess -0.9 MMOL/L (-2.5-2.5); ABG HCO3 23.7 MMOL/L (20-26); ABG Oxygen Saturation 98.3 % (95-100); ABG PCO2 44.9 MM HG (35-48); ABG PH 7.352 (7.35-7.45); ABG TCO2 22.4 MMOL/L (23-27)
[2017-10-24 04:23] LABS: Basophils # 0.1 10*3/uL (0.0-0.2); Basophils % 0.3 % (0.0-0.8); Hematocrit 34.8 VOL% (35.7-47.0); Immature Granulocytes % 7.6 %; Immature Granulocytes Absolute 1.51 #; Lymphocytes # 1.3 10*3/uL (1.4-4.0); Lymphocytes % 6.5 % (21.3-54.2); Mean Corpuscular HGB Conc 31.6 GM/DL (32-36); Mean Corpuscular Hemoglobin 29 PG (27-34); Mean Corpuscular Volume 92.1 FL (87-102); Mean Platelet Volume 11.2 FL (9.6-12.0); Monocytes % 5.1 % (1.7-12.7); Neutrophils % 80.5 % (38.7-73.9); Platelet Count 317 T/CUMM (130-400); Red Blood Count 3.78 MC/CUMM (3.8-5.5); Red Cell Distribution Width 15.3 % (9.3-17.3); White Blood Count 19.9 T/CUMM (4-12)
[2017-10-24 04:47] LABS: Calcium 8.3 MG/DL (8.5-10.1); Osmolality,Calculated 300.5 MOS/KG (273-304); Potassium 5.3 MMOL/L (3.5-5.1)
[2017-10-24 05:27] LABS: Band Neutrophils 5 % (0-10); Giant Platelets Few; Hypochromasia Slight; Lymphocytes 4 % (20-55); Metamyelocytes 1 %; Myelocytes 1 %; Ovalocytes Slight; Platelet Estimate Adequate; Segmented Neutrophils 83 % (50-85); Total Cells Counted 100
[2017-10-24] MEDS: MORPHINE 10 MG/5 ML UDCUP PO SCH (05:57)
[2017-10-24] MEDS: PROPOFOL 1,000 MG/100 ML BOTTLE IV SCH ×2 (07:04→18:58)
[2017-10-24] MEDS ORDERED: METOPROLOL TARTRATE 5 MG/5 ML VIAL IV ONE ×2 (08:11→08:22)
[2017-10-24] MEDS ORDERED: DIGOXIN 0.5 MG/2 ML AMP ONE (08:19)
[2017-10-24] MEDS ORDERED: DIGOXIN 0.5 MG/2 ML AMP IV ONE (08:22)
[2017-10-24] MEDS: SOTALOL 80 MG TABLET NG SCH ×2 (08:28→22:10)
[2017-10-24] MEDS: ASPIRIN CHEW 81 MG TABLET PO SCH (08:34)
[2017-10-24] MEDS: CARVEDILOL 25 MG TABLET PO SCH ×2 (08:34→22:11)
[2017-10-24] MEDS: ASCORBIC ACID 500 MG TABLET PO SCH ×2 (08:34→22:10)
[2017-10-24] MEDS: PANTOPRAZOLE 40 MG VIAL IV SCH (08:34)
[2017-10-24] MEDS: CARBIDOPA/LEVODOPA 25-100 MG TABLET PO SCH ×2 (08:34→22:10)
[2017-10-24] MEDS: GABAPENTIN 300 MG CAPSULE PO SCH ×3 (08:34→22:11)
[2017-10-24] MEDS: ENOXAPARIN 80 MG/0.8 ML SYRINGE SUBCUT SCH ×2 (08:35→22:09)
[2017-10-24] MEDS: INSULIN GLARGINE 100 UNIT/ML SUBCUT SCH ×2 (08:35→22:09)
[2017-10-24] MEDS: CEFTAROLINE 600 MG in SODIUM CHLORIDE 0.9% 100 ML IV SCH ×2 (08:39→22:15)
[2017-10-24] MEDS ORDERED: DILTIAZEM 50 MG/10 ML VIAL IV ONE (08:42)
[2017-10-24] MEDS: DILTIAZEM INJ 100 MG in SODIUM CHLORIDE 0.9% 100 ML IV SCH ×2 (08:59→16:11)
[2017-10-24] MEDS: POTASSIUM CHLORIDE 20 MEQ TABLET PO SCH (09:00)
[2017-10-24] MEDS: DULoxetine 30 MG CAPSULE PO SCH (09:02)
[2017-10-24] MEDS: LEVOFLOXACIN INJ 500 MG in PREMIX 1 EACH IV SCH (20:13)
[2017-10-25] MEDS: ALBUTEROL/IPRATROPIUM 3 ML NEB RESP TX SCH ×6 (03:02→23:03)
[2017-10-25] MEDS: INSULIN REGULAR 100 UNIT/ML SUBCUT SCH ×6 (03:58→23:35)
[2017-10-25 04:21] LABS: ABG Base Excess 1.6 MMOL/L (-2.5-2.5); ABG HCO3 25.4 MMOL/L (20-26); ABG Oxygen Saturation 98.1 % (95-100); ABG PCO2 37.2 MM HG (35-48); ABG PH 7.453 (7.35-7.45); ABG PO2 119.6 MM HG (80-95); ABG TCO2 26.6 MMOL/L (23-27); Allen Test Positive; Pt O2 Delivery Device Ventilator
[2017-10-25 04:27] LABS: Basophils # 0.1 10*3/uL (0.0-0.2); Basophils % 0.3 % (0.0-0.8); Hemoglobin 10.4 GM/DL (12.0-16.0); Immature Granulocytes % 7.6 %; Immature Granulocytes Absolute 1.42 #; Lymphocytes # 1.2 10*3/uL (1.4-4.0); Lymphocytes % 6.3 % (21.3-54.2); Mean Corpuscular HGB Conc 31.5 GM/DL (32-36); Mean Corpuscular Hemoglobin 29 PG (27-34); Mean Corpuscular Volume 91.4 FL (87-102); Mean Platelet Volume 11.2 FL (9.6-12.0); Monocytes # 0.8 10*3/uL (0.11-0.8); Monocytes % 4.4 % (1.7-12.7); Neutrophils # 15.2 10*3/uL (1.4-7.4); Neutrophils % 81.4 % (38.7-73.9); Platelet Count 290 T/CUMM (130-400); Red Blood Count 3.61 MC/CUMM (3.8-5.5); Red Cell Distribution Width 14.8 % (9.3-17.3); White Blood Count 18.7 T/CUMM (4-12)
[2017-10-25 05:09] LABS: Band Neutrophils 5 % (0-10); Giant Platelets Few; Hypochromasia 1+; Lymphocytes 6 % (20-55); Ovalocytes Slight; Platelet Estimate Adequate; Segmented Neutrophils 85 % (50-85); Total Cells Counted 100
[2017-10-25 05:42] LABS: Calcium 8.2 MG/DL (8.5-10.1); Osmolality,Calculated 301.1 MOS/KG (273-304); Potassium 4.3 MMOL/L (3.5-5.1)
[2017-10-25] MEDS: PROPOFOL 1,000 MG/100 ML BOTTLE IV SCH ×2 (06:05→17:51)
[2017-10-25] MEDS ORDERED: MIDAZOLAM 2 MG/2 ML VIAL ONE ×2 (06:27→06:34)
[2017-10-25] MEDS ORDERED: MIDAZOLAM 2 MG/2 ML VIAL IV ONE ×2 (06:30→07:00)
[2017-10-25] MEDS: INSULIN GLARGINE 100 UNIT/ML SUBCUT SCH ×2 (08:24→21:31)
[2017-10-25] MEDS: GABAPENTIN 300 MG CAPSULE PO SCH ×3 (08:25→21:35)
[2017-10-25] MEDS: SOTALOL 80 MG TABLET NG SCH ×2 (08:25→21:34)
[2017-10-25] MEDS: ASPIRIN CHEW 81 MG TABLET PO SCH (08:25)
[2017-10-25] MEDS: ASCORBIC ACID 500 MG TABLET PO SCH ×2 (08:25→21:34)
[2017-10-25] MEDS: CARVEDILOL 25 MG TABLET PO SCH ×2 (08:25→21:35)
[2017-10-25] MEDS: CARBIDOPA/LEVODOPA 25-100 MG TABLET PO SCH ×2 (08:25→21:34)
[2017-10-25] MEDS: PANTOPRAZOLE 40 MG VIAL IV SCH (08:25)
[2017-10-25] MEDS: CEFTAROLINE 600 MG in SODIUM CHLORIDE 0.9% 100 ML IV SCH ×2 (08:26→21:36)
[2017-10-25] MEDS: methylPREDNISolone SOD SUC 40 MG/1 ML VIAL IV SCH ×3 (09:36→23:35)
[2017-10-25] MEDS: ENOXAPARIN 80 MG/0.8 ML SYRINGE SUBCUT SCH ×2 (09:37→21:53)
[2017-10-25] MEDS: DILTIAZEM INJ 100 MG in SODIUM CHLORIDE 0.9% 100 ML IV SCH (10:22)
[2017-10-25] MEDS: DILTIAZEM 30 MG TABLET PO SCH ×4 (10:51→21:34)
[2017-10-25] MEDS: LEVOFLOXACIN INJ 500 MG in PREMIX 1 EACH IV SCH (21:36)
[2017-10-26] MEDS: ALBUTEROL/IPRATROPIUM 3 ML NEB RESP TX SCH ×6 (03:20→22:57)
[2017-10-26] MEDS: MORPHINE 2 MG/1 ML SYRINGE IV PRN (04:02)
[2017-10-26] MEDS: INSULIN REGULAR 100 UNIT/ML SUBCUT SCH ×5 (04:03→20:07)
[2017-10-26 04:04] LABS: Basophils % 0.2 % (0.0-0.8); Hemoglobin 10.5 GM/DL (12.0-16.0); Immature Granulocytes % 5.6 %; Immature Granulocytes Absolute 1.32 #; Lymphocytes # 1.2 10*3/uL (1.4-4.0); Lymphocytes % 5.2 % (21.3-54.2); Mean Corpuscular HGB Conc 31.8 GM/DL (32-36); Mean Corpuscular Hemoglobin 29 PG (27-34); Mean Corpuscular Volume 90.9 FL (87-102); Mean Platelet Volume 11.7 FL (9.6-12.0); Monocytes # 0.9 10*3/uL (0.11-0.8); Monocytes % 3.9 % (1.7-12.7); NRBC # 0.02 10*3/uL; Neutrophils # 20.1 10*3/uL (1.4-7.4); Neutrophils % 85.1 % (38.7-73.9); Platelet Count 378 T/CUMM (130-400); Red Blood Count 3.63 MC/CUMM (3.8-5.5); Red Cell Distribution Width 15.3 % (9.3-17.3); White Blood Count 23.6 T/CUMM (4-12)
[2017-10-26 04:30] LABS: Calcium 8.3 MG/DL (8.5-10.1); Potassium 4.8 MMOL/L (3.5-5.1)
[2017-10-26 04:45] LABS: Band Neutrophils 6 % (0-10); Lymphocytes 7 % (20-55); Metamyelocytes 3 %; Segmented Neutrophils 83 % (50-85); Total Cells Counted 100
[2017-10-26 04:58] LABS: ABG Base Excess -1.3 MMOL/L (-2.5-2.5); ABG HCO3 23.3 MMOL/L (20-26); ABG Oxygen Saturation 98.8 % (95-100); ABG PCO2 34.3 MM HG (35-48); ABG PH 7.425 (7.35-7.45); ABG TCO2 20.3 MMOL/L (23-27)
[2017-10-26] MEDS: methylPREDNISolone SOD SUC 40 MG/1 ML VIAL IV SCH ×2 (08:58→16:18)
[2017-10-26] MEDS: CARBIDOPA/LEVODOPA 25-100 MG TABLET PO SCH ×2 (09:02→21:23)
[2017-10-26] MEDS: GABAPENTIN 300 MG CAPSULE PO SCH ×3 (09:02→21:24)
[2017-10-26] MEDS: DILTIAZEM 30 MG TABLET PO SCH (09:02)
[2017-10-26] MEDS: SOTALOL 80 MG TABLET NG SCH ×2 (09:03→21:23)
[2017-10-26] MEDS: ASCORBIC ACID 500 MG TABLET PO SCH ×2 (09:03→21:21)
[2017-10-26] MEDS: ASPIRIN CHEW 81 MG TABLET PO SCH (09:03)
[2017-10-26] MEDS: ENOXAPARIN 80 MG/0.8 ML SYRINGE SUBCUT SCH (09:03)
[2017-10-26] MEDS: INSULIN GLARGINE 100 UNIT/ML SUBCUT SCH ×2 (09:04→21:27)
[2017-10-26] MEDS: CARVEDILOL 25 MG TABLET PO SCH ×2 (09:04→21:23)
[2017-10-26] MEDS: PANTOPRAZOLE 40 MG VIAL IV SCH (09:04)
[2017-10-26] MEDS: CEFTAROLINE 600 MG in SODIUM CHLORIDE 0.9% 100 ML IV SCH ×2 (09:11→21:21)
[2017-10-26] MEDS ORDERED: DILTIAZEM 60 MG TABLET PO SCH ×2 (13:00→18:00)
[2017-10-26] MEDS ORDERED: DIGOXIN 0.25 MG TABLET PO SCH (13:00)
[2017-10-26] MEDS: DILTIAZEM 50 MG/10 ML VIAL IV ONE ×2 (13:48→13:49)
[2017-10-26] MEDS: DILTIAZEM INJ 100 MG in SODIUM CHLORIDE 0.9% 100 ML IV SCH ×2 (13:49→21:01)
[2017-10-26] MEDS: LEVOFLOXACIN INJ 500 MG in PREMIX 1 EACH IV SCH (20:09)
[2017-10-27] MEDS: methylPREDNISolone SOD SUC 40 MG/1 ML VIAL IV SCH ×2 (00:08→08:48)
[2017-10-27] MEDS: INSULIN REGULAR 100 UNIT/ML SUBCUT SCH ×4 (00:10→11:46)
[2017-10-27] MEDS: ALBUTEROL/IPRATROPIUM 3 ML NEB RESP TX SCH ×3 (03:25→11:42)
[2017-10-27 03:29] LABS: ABG Base Excess -1.5 MMOL/L (-2.5-2.5); ABG HCO3 23.2 MMOL/L (20-26); ABG Oxygen Saturation 99.2 % (95-100); ABG PCO2 30.3 MM HG (35-48); ABG TCO2 19.6 MMOL/L (23-27)
[2017-10-27] MEDS: MORPHINE 2 MG/1 ML SYRINGE IV PRN (04:02)
[2017-10-27 04:58] LABS: Basophils % 0.2 % (0.0-0.8); Hematocrit 30.8 VOL% (35.7-47.0); Hemoglobin 9.8 GM/DL (12.0-16.0); Immature Granulocytes % 8.1 %; Immature Granulocytes Absolute 1.58 #; Lymphocytes # 1.2 10*3/uL (1.4-4.0); Lymphocytes % 6.1 % (21.3-54.2); Mean Corpuscular HGB Conc 31.8 GM/DL (32-36); Mean Corpuscular Hemoglobin 29 PG (27-34); Mean Corpuscular Volume 91.4 FL (87-102); Monocytes # 0.9 10*3/uL (0.11-0.8); Monocytes % 4.5 % (1.7-12.7); NRBC # 0.06 10*3/uL; Neutrophils # 15.8 10*3/uL (1.4-7.4); Neutrophils % 81.1 % (38.7-73.9); Platelet Count 337 T/CUMM (130-400); Red Blood Count 3.37 MC/CUMM (3.8-5.5); Red Cell Distribution Width 15.6 % (9.3-17.3); White Blood Count 19.5 T/CUMM (4-12)
[2017-10-27 05:29] LABS: Calcium 8.4 MG/DL (8.5-10.1); Osmolality,Calculated 320.7 MOS/KG (273-304); Potassium 4.7 MMOL/L (3.5-5.1)
[2017-10-27 05:31] LABS: Band Neutrophils 3 % (0-10); Giant Platelets Few; Hypochromasia 1+; Lymphocytes 7 % (20-55); Myelocytes 2 %; Ovalocytes Slight; Platelet Estimate Adequate; Segmented Neutrophils 86 % (50-85); Total Cells Counted 100
[2017-10-27 06:02] LABS: Prealbumin 43.1 MG/DL (20-40)
[2017-10-27] MEDS: DILTIAZEM INJ 100 MG in SODIUM CHLORIDE 0.9% 100 ML IV SCH (06:02)
[2017-10-27] MEDS: SOTALOL 80 MG TABLET NG SCH (08:52)
[2017-10-27] MEDS: INSULIN GLARGINE 100 UNIT/ML SUBCUT SCH (08:53)
[2017-10-27] MEDS: ASPIRIN CHEW 81 MG TABLET PO SCH (08:53)
[2017-10-27] MEDS: CARVEDILOL 25 MG TABLET PO SCH (08:53)
[2017-10-27] MEDS: ASCORBIC ACID 500 MG TABLET PO SCH (08:53)
[2017-10-27] MEDS: GABAPENTIN 300 MG CAPSULE PO SCH (08:53)
[2017-10-27] MEDS: CARBIDOPA/LEVODOPA 25-100 MG TABLET PO SCH (08:53)
[2017-10-27] MEDS: PANTOPRAZOLE 40 MG VIAL IV SCH (08:54)
[2017-10-27] MEDS: CEFTAROLINE 600 MG in SODIUM CHLORIDE 0.9% 100 ML IV SCH (08:59)
[2017-10-27] MEDS ORDERED: DILTIAZEM 60 MG TABLET PO SCH ×4 (10:00→16:00)
[2017-10-27 13:20] VITALS: BP 140/54
[2017-10-27] MEDS ORDERED: APIXABAN 5 MG TABLET NG SCH (21:00)
== END 2017-10-27 13:43 | DRG 4 ==
LOC: EDUNIT# → EDBD → N.ED 16:48 → N.EDINP 17:58 → N.ICU 19:21
PROVIDERS: ADMIT Hospitalist; ATTEND Hospitalist